=== PATIENT | female | born 1985 | race Two or more races ===

== ENCOUNTER 2016-03-26 22:18 | Emergency (ER) | payer SELFPAY ==
[~2016-03-26] VITALS: Ht 165.1 cm; Wt 65.8 kg
--- NOTE | 2016-03-26 23:02 | Emergency Room Report ---
History of Present Illness General Chief Complaint: Vaginal Source: Patient Present Illness HPI Patient presents with complaints of dysuria this started on Saturday Soon after that the patient started feeling some itching sensation in the vaginal area Patient had tried npyl-fyx-oohwoow medication however the symptoms continued Patient presents to the ER Denies any abdominal pain denies any pelvic pain Patient essentially active with one partner for the past 10 years Denies any back or flank pain Denies any vomiting or diarrhea Allergies: Coded Allergies: No Known Allergies (Unverified , 03/26/16) Patient History Past Medical History: see triage record Pertinent Family History: none Last Menstrual Period: 03/13/16 Reviewed Nursing Documentation: PMH: Agreed, PSxH: Agreed Nursing Documentation-PMH Past Medical History: No History, Except For Hx Cardiac Problems: Yes - murmur Review of Systems All Other Systems: negative except mentioned in HPI Physical Exam Vital Signs Date Time Temp Pulse Resp B/P Pulse Ox O2 Delivery O2 Flow Rate FiO2 03/26/16 22:32 98.4 72 16 112/67 99 Room Air Sp02 EP Interpretation: reviewed, normal General Appearance: well appearing, no apparent distress Head: normocephalic, atraumatic Eyes: bilateral eye EOMI, bilateral eye PERRL ENT: normal pharynx, no angioedema Neck: supple Gastrointestinal: non tender, soft, no mass Genitourinary: other - External vaginal exam does not reveal any dermatitis, no obvious rash Musculoskeletal: normal inspection Neurologic: alert, oriented x3, responsive Skin: normal color, no rash Lymphatic: no adenopathy Medical Decision Making Diagnostic Impression: Primary Impression: UTI (urinary tract infection) Additional Impression: Vaginosis ER Course Multiple differentials are considered Patient's urine sample that showed infectious pathology Consideration for STD is lower And therefore Chlamydia coverage was not initiated in the ER Patient has evidence of vaginosis as well and will have initial conservative outpatient she Labs Test 03/26/16 23:00 Urine Color Pale yellow Urine Appearance Clear Urine pH 5 (4.5-8.0) Urine Specific [place] 1.020 (1.005-1.035) Urine Protein Negative (NEGATIVE) Urine Glucose (UA) Negative (NEGATIVE) Urine Ketones Negative (NEGATIVE) Urine Occult Blood 1+ (NEGATIVE) Urine Nitrite Negative (NEGATIVE) Urine Bilirubin Negative (NEGATIVE) Urine Urobilinogen Normal MG/DL (0.0-1.0) Urine Leukocyte Esterase 3+ (NEGATIVE) Urine RBC 2-4 /HPF (0 - 2) Urine WBC 10-15 /HPF (0 - 2) Urine Squamous Epithelial Cells Few /LPF (NONE/OCC) Urine Bacteria Few /HPF (NONE) Urine HCG, Qualitative Negative Last Vital Signs Date Time Temp Pulse Resp B/P Pulse Ox O2 Delivery O2 Flow Rate FiO2 03/26/16 22:32 98.4 72 16 112/67 99 Room Air Status: improved Disposition: HOME, SELF-CARE Condition: Improved Scripts Miconazole Nitrate (MONISTAT 7) 45 Gm Cream.appl 45 GM VG DAILY for 7 Days, GM Prov: RIGOBERTO VELASCO D.O. 03/27/16 Nitrofurantoin Monohyd/M-Cryst* (MACROBID 100 MG*) 100 Mg Capsule 100 MG ORAL EVERY 12 HOURS for 7 Days, CAP Prov: RIGOBERTO VELASCO D.O. 03/27/16 Additional Instructions: Patient is provided with the discharge instructions notified to follow up with primary doctor in the next 2-3 days otherwise return to the er with any worsening symptoms. RIGOBERTO VELASCO D.O. Mar 26, 2016 23:02
[2016-03-26 23:34] LABS: APPEARANCE,URINE CLEAR; KETONES,URINE NEGATIVE (NEGATIVE); LEUKOCYTE ESTERASE ,URINE 3+ (NEGATIVE); NITRITE,URINE NEGATIVE (NEGATIVE); PH,URINE 5 (4.5-8.0); PROTEIN,URINE NEGATIVE (NEGATIVE); UROBILINOGEN,URINE NORMAL MG/DL (0.0-1.0)
[2016-03-26 23:51] LABS: BACTERIA,URINE FEW /HPF; SQUAMOUS EPITHELIAL CELL,UR FEW /LPF (NONE/OCC)
[2016-03-27] MEDS ORDERED: MONISTAT 745 GM VG (00:13)
[2016-03-27] MEDS ORDERED: NITROFURANTOIN100 M2 ORAL (00:13)
[2016-03-27 00:50] VITALS: BP 112/67
[2016-03-27 00:55] VITALS: BP 112/67
== END 2016-03-27 00:55 | disposition home or self-care (01) ==
LOC: EMR 22:58
DX: N39.0 Urinary tract infection, site not specified (principal); N76.0 Acute vaginitis
CPT/HCPCS: 81003; 81025; 87086; 99282

== ENCOUNTER 2017-06-18 15:42 | Emergency (ER) | payer MEDICAID ==
[~2017-06-18] VITALS: Ht 165.1 cm; Wt 61.2 kg
[~2017-06-18 15:42] MED LIST: MONISTAT 745 GM VG; NITROFURANTOIN100 M2 ORAL
[2017-06-18 15:45] VITALS: BP 104/58
[2017-06-18 16:31] LABS: BASOPHILS % (AUTO) 1.3 % (0.0-2.0); EOSINOPHILS % (AUTO) 0.7 % (0.0-3.0); HEMOGLOBIN 10.7 G/DL (12.0-16.0); LYMPHOCYTES % (AUTO) 30.1 % (20.0-45.0); MEAN CORPUSCULAR VOLUME 88 FL (80-99); NEUTROPHILS % (AUTO) 60.9 % (45.0-75.0); PLATELET COUNT 200 K/UL (150-450); RED BLOOD COUNT 3.52 M/UL (4.20-5.40); RED CELL DISTRIBUTION WIDTH 11.2 % (11.6-14.8); WHITE BLOOD COUNT 7.3 K/UL (4.8-10.8)
[2017-06-18 16:55] LABS: ANION GAP 7 mmol/L (5-15); BLOOD UREA NITROGEN 9 mg/dL (7-18); CALCIUM 7.9 MG/DL (8.5-10.1); CARBON DIOXIDE 24 MMOL/L (21-32); CHLORIDE 108 MMOL/L (98-107); CREATININE 0.8 MG/DL (0.55-1.30); POTASSIUM 4.2 MMOL/L (3.5-5.1); SODIUM 139 MMOL/L (136-145)
[2017-06-18 17:02] LABS: ALANINE AMINOTRANSFERASE 15 U/L (12-78); ALBUMIN 2.9 G/DL (3.4-5.0); ALKALINE PHOSPHATASE 67 U/L (46-116); ASPARTATE AMINO TRANSFERASE 14 U/L (15-37); BILIRUBIN,TOTAL 0.2 MG/DL (0.2-1.0)
[2017-06-18 17:18] LABS: APPEARANCE,URINE SLIGHTLY CLOUDY; BILIRUBIN, URINE NEGATIVE (NEGATIVE); COLOR,URINE RED; GLUCOSE, URINE (UA) NEGATIVE (NEGATIVE); KETONES,URINE NEGATIVE (NEGATIVE); LEUKOCYTE ESTERASE ,URINE 2+ (NEGATIVE); NITRITE,URINE NEGATIVE (NEGATIVE); PH,URINE 8 (4.5-8.0); PROTEIN,URINE 3+ (NEGATIVE); UROBILINOGEN,URINE NORMAL MG/DL (0.0-1.0)
[2017-06-18 17:45] VITALS: BP 95/58
--- NOTE | 2017-06-18 18:10 | Emergency Room Report ---
History of Present Illness General Chief Complaint: Syncope Source: Patient, EMS Present Illness HPI Patient is a 32-year-old female brought in by EMS after increased vaginal bleeding and a syncopal episode. Patient had previous deliveryapproximately one month ago. Patient is A1. She reports having continuous vaginal bleeding which had gotten worse over the past 2 days. The patient had been seen by Dr. Juan Carlos Andre Allergies: Coded Allergies: No Known Allergies (Unverified , 03/26/16) Patient History Past Medical History: see triage record Last Menstrual Period: Unk Reviewed Nursing Documentation: PMH: Agreed; PSxH: Agreed Nursing Documentation-PMH Hx Cardiac Problems: Yes - murmur Review of Systems All Other Systems: negative except mentioned in HPI Physical Exam Vital Signs Date Time Temp Pulse Resp B/P (MAP) Pulse Ox O2 Delivery O2 Flow Rate FiO2 06/18/17 15:39 97.0 63 12 85/65 100 Room Air 97.0 Sp02 EP Interpretation: reviewed, normal General Appearance: normal inspection, well appearing, no apparent distress, alert, GCS 15 Head: atraumatic ENT: normal ENT inspection, hearing grossly normal, normal voice Neck: normal inspection, full range of motion, supple, no bony tend Respiratory: normal inspection, lungs clear, normal breath sounds, no respiratory distress, no retraction, no wheezing Cardiovascular #1: regular rate, rhythm, no edema Gastrointestinal: normal inspection, normal bowel sounds, non tender, soft, no guarding, no hernia Genitourinary: other - posterior vulvar swelling. small amount of bleeding Musculoskeletal: normal inspection, back normal, normal range of motion Neurologic: normal inspection, alert, oriented x3, responsive, multimedia assistant III-XII nml as tested, motor strength/tone normal, speech normal Psychiatric: normal inspection, judgement/insight normal, mood/affect normal Skin: normal inspection, normal color, no rash Medical Decision Making Diagnostic Impression: Primary Impression: Retained products of conception Additional Impression: Syncope ER Course The patient presented for syncopal episode. Differential diagnosis included was not limited to anemia, retained products of conception, sepsis, vasovagal episode among others.Because of complexity of patient's case laboratory testing and imaging studies were ordered. The patient was noted to have adequate hemoglobin. The bleeding appeared to be moderate. The pelvic ultrasound showed evidence of some retained products of conception. The patient was given Keflex by mouth. The patient's case was discussed with her [employer] Dr. Juan Carlos Andre. The patient was to follow-up with him for D&C. The patient does not appear to be bleeding briskly. As she was given a prescription for Methergine. The patient is to return if she began having increased dizziness or other concerns. Labs Test 06/18/17 15:53 06/18/17 16:57 White Blood Count 7.3 K/UL (4.8-10.8) Red Blood Count 3.52 M/UL (4.20-5.40) Hemoglobin 10.7 G/DL (12.0-16.0) Hematocrit 31.0 % (37.0-47.0) Mean Corpuscular Volume 88 FL (80-99) Mean Corpuscular Hemoglobin 30.5 PG (27.0-31.0) Mean Corpuscular Hemoglobin Concent 34.6 G/DL (32.0-36.0) Red Cell Distribution Width 11.2 % (11.6-14.8) Platelet Count 200 K/UL (150-450) Mean Platelet Volume 6.3 FL (6.5-10.1) Neutrophils (%) (Auto) 60.9 % (45.0-75.0) Lymphocytes (%) (Auto) 30.1 % (20.0-45.0) Monocytes (%) (Auto) 7.0 % (1.0-10.0) Eosinophils (%) (Auto) 0.7 % (0.0-3.0) Basophils (%) (Auto) 1.3 % (0.0-2.0) Prothrombin Time 10.3 SEC (9.30-11.50) Prothromb Time International Ratio 1.0 (0.9-1.1) Activated Partial Thromboplast Time 25 SEC (23-33) Sodium Level 139 MMOL/L (136-145) Potassium Level 4.2 MMOL/L (3.5-5.1) Chloride Level 108 MMOL/L (98-107) Carbon Dioxide Level 24 MMOL/L (21-32) Anion Gap 7 mmol/L (5-15) Blood Urea Nitrogen 9 mg/dL (7-18) Creatinine 0.8 MG/DL (0.55-1.30) Estimat Glomerular Filtration Rate > 60 mL/min (>60) Glucose Level 121 MG/DL (74-106) Calcium Level 7.9 MG/DL (8.5-10.1) Total Bilirubin 0.2 MG/DL (0.2-1.0) Aspartate Amino Transf (AST/SGOT) 14 U/L (15-37) Alanine Aminotransferase (ALT/SGPT) 15 U/L (12-78) Alkaline Phosphatase 67 U/L (46-116) Troponin I 0.000 ng/mL (0.000-0.056) Total Protein 5.8 G/DL (6.4-8.2) Albumin 2.9 G/DL (3.4-5.0) Globulin 2.9 g/dL Albumin/Globulin Ratio 1.0 (1.0-2.7) Lipase 118 U/L (73-393) Human Chorionic Gonadotropin, Quant 11 mIU/mL (1-6) Urine Color Red Urine Appearance Slightly cloudy Urine pH 8 (4.5-8.0) Urine Specific [place] 1.010 (1.005-1.035) Urine Protein 3+ (NEGATIVE) Urine Glucose (UA) Negative (NEGATIVE) Urine Ketones Negative (NEGATIVE) Urine Occult Blood 5+ (NEGATIVE) Urine Nitrite Negative (NEGATIVE) Urine Bilirubin Negative (NEGATIVE) Urine Urobilinogen Normal MG/DL (0.0-1.0) Urine Leukocyte Esterase 2+ (NEGATIVE) Urine RBC 20-30 /HPF (0 - 2) Urine WBC 5-10 /HPF (0 - 2) Urine Squamous Epithelial Cells Few /LPF (NONE/OCC) Urine Bacteria Few /HPF (NONE) Last Vital Signs Date Time Temp Pulse Resp B/P (MAP) Pulse Ox O2 Delivery O2 Flow Rate FiO2 06/18/17 15:39 97.0 63 12 85/65 100 Room Air 97.0 Status: improved Disposition: HOME, SELF-CARE Condition: Stable Scripts Methylergonovine Maleate (METHYLERGONOVINE MALEATE) 0.2 Mg Tablet 0.2 MG ORAL EVERY 8 HOURS, #6 TAB Prov: Prasad Richardson 06/18/17 Ibuprofen* (MOTRIN*) 400 Mg Tablet 400 MG ORAL Q8H, #30 TAB 0 Refills Prov: Prasad Richardson 06/18/17 Cephalexin* (KEFLEX*) 500 Mg Capsule 500 MG ORAL Q6H, #28 CAP 0 Refills Prov: Prasad Richardson 06/18/17 Prasad Richardson Jun 18, 2017 18:10
[2017-06-18] MEDS: Morphine Sulfate 2mg/ml Inj IVP ONE (18:15)
[2017-06-18] MEDS: Sodium Chloride 500ML 500 ML IV ONE (18:15)
[2017-06-18] MEDS ORDERED: METHYLERGONOVI0.2 MG ORAL (19:05)
[2017-06-18] MEDS ORDERED: KEFLEX500 MG ORAL (19:05)
[2017-06-18] MEDS ORDERED: IBUPROFEN400 MG ORAL (19:05)
[2017-06-18 19:25] VITALS: BP 106/56
[2017-06-18 19:30] VITALS: BP 106/56
[2017-06-18] MEDS: Cephalexin 500mg cap ORAL ONE (19:36)
--- NOTE | 2017-06-19 12:09 | Diagnostic Imaging Report ---
Indication:Lower abdominal and pelvic pain. Vaginal bleeding. 05/18/2017 Technique: Grayscale and duplex Doppler imaging of the pelvis performed utilizing a transabdominal scan and endovaginal scan. Comparison: None Findings: There is a heterogeneous mass present within the lower uterine segment endocervical canal with increased vascularity suspicious for retained products of conception. Clinical evaluation by CLINICAL SUPPORT TECH is needed. Trace free fluid is present. The ovaries appear unremarkable bilaterally. IMPRESSION: Heterogeneous hypervascular focus measuring 3 x 5 cm in the lower uterine segment/upper cervical region. Suspect retained products of conception. [facility] has communicated the preliminary results to the Emergency Department. Their findings are largely concordant with this report.
== END 2017-06-18 19:30 | disposition home or self-care (01) ==
LOC: EDBD 15:42 → EMR 16:13
DX: O72.2 Delayed and secondary postpartum hemorrhage (principal); R55 Syncope and collapse
CPT/HCPCS: 36415; 76830; 76856; 80053; 81003; 83690; 84484; 84702; 85025; 85610; 85730; 86850; 86900; 86901; 96374; 96375; 99284